=== PATIENT | male | born 1955 | race Caucasian/White ===

== ENCOUNTER 2020-08-26 10:01 | Outpatient (CLI) | payer MEDICARE ==
[2020-08-26 10:53] LABS: CLARITY,URINE CLEAR (Clear); COLOR,URINE YELLOW (Yellow); GLUCOSE, URINE NEGATIVE (Neg); KETONES,URINE TRACE mg/dl (Neg); LEUKOCYTE ESTERASE ,URINE NEGATIVE (Neg); OCCULT BLOOD,URINE NEGATIVE (Neg); PH,URINE 5.5 (4.8-8.0); PROTEIN,URINE NEGATIVE (Neg); UROBILINOGEN,URINE 0.2 E.U/dL (0.2-1.0)
[2020-08-26 10:55] LABS: UA COLLECTION TYPE CLN CATCH MIDSTREAM
[2020-08-26 10:57] LABS: BASOPHILS % (AUTO) 1.4 % (0-1); EOSINOPHILS # (AUTO) 0.1 X10'3 (0-0.9); EOSINOPHILS % (AUTO) 3.9 % (0-6); HEMATOCRIT 46.6 % (42.0-52.0); HEMOGLOBIN 15.8 g/dl (14.0-17.9); LYMPHOCYTES % (AUTO) 27.5 % (21-51); MEAN CORPUSCULAR HEMOGLOBIN 32.4 PG (27.0-31.0); MEAN CORPUSCULAR HGB CONC 33.8 g/dL (33.0-36.5); MEAN CORPUSCULAR VOLUME 95.6 FL (78-98); MEAN PLATELET VOLUME 10.4 FL (7.4-10.4); MONOCYTES # (AUTO) 0.3 X10'3 (0-0.9); MONOCYTES % (AUTO) 9.4 % (2-12); NEUTROPHILS # (AUTO) 2.1 X10'3 (1.8-7.7); NEUTROPHILS % (AUTO) 57.8 % (42-75); PLATELET COUNT 138 X10'3 (140-440); RED BLOOD COUNT 4.87 X10'6 (4.70-6.10); RED CELL DISTRIBUTION WIDTH 13.6 % (11.5-14.5); WHITE BLOOD COUNT 3.6 X10'3 (4.5-11.0)
[2020-08-26 10:59] LABS: SQUAMOUS EPITHELIAL CELL,UR FEW /LPF (FEW)
[2020-08-26 11:02] LABS: BACTERIA,URINE 1+ /HPF (Neg); NITRITES, URINE NEGATIVE (Neg); RBC,URINE 0-2 /HPF (0-2); WBC,URINE 0-4 /HPF (0-4)
[2020-08-26 11:03] LABS: HYALINE CASTS 0-3 /LPF (NEGATIVE)
[2020-08-26 11:15] LABS: ALANINE AMINOTRANSFERASE 22 U/L (12-78); ALBUMIN 3.8 G/DL (3.4-5.0); ALBUMIN/GLOBULIN RATIO 1.1 (1.1-1.5); ALKALINE PHOSPHATASE 82 IU/L (46-116); ANION GAP 8 (8-16); ASPARTATE AMINO TRANSFERASE 18 U/L (10-37); BILIRUBIN,TOTAL 0.7 MG/DL (0.1-1.0); BLOOD UREA NITROGEN 18 MG/DL (7-18); BUN/CREATININE RATIO 19.6 (5.4-32.0); CALCIUM 8.9 MG/DL (8.5-10.1); CHLORIDE 106 MMOL/L (99-107); CHOL/HDL RATIO 3.3 (0.00-4.99); CHOLESTEROL 186 MG/DL (0-200); CREATININE 0.92 MG/DL (0.60-1.10); GLUCOSE 85 MG/DL (70-104); HDL CHOLESTEROL 57 MG/DL (35-60); LDL CHOLESTEROL 113 MG/DL (50-100); SODIUM 146 MMOL/L (135-145); TOTAL CARBON DIOXIDE 32.4 MMOL/L (24-32); TOTAL PROTEIN 7.3 G/DL (6.4-8.2); TRIGLYCERIDES 51 MG/DL (20-135); eGFR 82 ML/MIN
== END 2020-08-26 23:59 | disposition home or self-care (01) ==
LOC: RAD 10:01
PROVIDERS: ATTEND Family Medicine
DX: J44.9 Chronic obstructive pulmonary disease, unspecified (principal); R06.02 Shortness of breath; I49.9 Cardiac arrhythmia, unspecified; R39.9 Unspecified symptoms and signs involving the genitourinary system; E78.5 Hyperlipidemia, unspecified
CPT/HCPCS: 36415; 71046; 80053; 80061; 81001; 84402; 84403; 84439; 84443; 85025

== ENCOUNTER 2020-09-30 09:55 | Outpatient (CLI) | payer MEDICARE | END 2020-09-30 23:59 | disposition home or self-care (01) | LOC: RT 09:55 | PROVIDERS: ATTEND Family Medicine | DX: R06.02 Shortness of breath (principal) | CPT/HCPCS: 94010; 94727; 94729 ==

== ENCOUNTER 2020-10-21 14:31 | Emergency (ER) | payer MEDICARE ==
[~2020-10-21] VITALS: Ht 185.4 cm; Wt 70.5 kg
[2020-10-21 16:14] LABS: BASOPHILS # (AUTO) 0.1 X10'3 (0-0.2); BASOPHILS % (AUTO) 1.2 % (0-1); EOSINOPHILS # (AUTO) 0.1 X10'3 (0-0.9); EOSINOPHILS % (AUTO) 1.3 % (0-6); HEMATOCRIT 47.1 % (42.0-52.0); HEMOGLOBIN 15.8 g/dl (14.0-17.9); MEAN CORPUSCULAR HEMOGLOBIN 31.5 PG (27.0-31.0); MEAN CORPUSCULAR HGB CONC 33.6 g/dL (33.0-36.5); MEAN CORPUSCULAR VOLUME 93.8 FL (78-98); MEAN PLATELET VOLUME 10.4 FL (7.4-10.4); MONOCYTES # (AUTO) 0.6 X10'3 (0-0.9); MONOCYTES % (AUTO) 12.1 % (2-12); NEUTROPHILS # (AUTO) 3.2 X10'3 (1.8-7.7); NEUTROPHILS % (AUTO) 65.4 % (42-75); PLATELET COUNT 140 X10'3 (140-440); RED BLOOD COUNT 5.02 X10'6 (4.70-6.10); RED CELL DISTRIBUTION WIDTH 13.4 % (11.5-14.5); WHITE BLOOD COUNT 4.8 X10'3 (4.5-11.0)
[2020-10-21 16:25] LABS: ALANINE AMINOTRANSFERASE 19 U/L (12-78); ALBUMIN 3.8 G/DL (3.4-5.0); ALBUMIN/GLOBULIN RATIO 1.1 (1.1-1.5); ALKALINE PHOSPHATASE 80 IU/L (46-116); ANION GAP 4 (8-16); ASPARTATE AMINO TRANSFERASE 14 U/L (10-37); BILIRUBIN,TOTAL 0.5 MG/DL (0.1-1.0); BLOOD UREA NITROGEN 21 MG/DL (7-18); BUN/CREATININE RATIO 19.4 (5.4-32.0); CALCIUM 9.1 MG/DL (8.5-10.1); CHLORIDE 105 MMOL/L (99-107); CREATININE 1.08 MG/DL (0.60-1.10); GLUCOSE 90 MG/DL (70-104); POTASSIUM 4.8 MMOL/L (3.5-5.1); SODIUM 141 MMOL/L (135-145); TOTAL CARBON DIOXIDE 32.1 MMOL/L (24-32); TOTAL PROTEIN 7.2 G/DL (6.4-8.2); eGFR 68 ML/MIN
[2020-10-21 21:11] VITALS: BP 131/80
== END 2020-10-21 21:09 | disposition home or self-care (01) ==
LOC: ER 14:32
DX: E86.0 Dehydration (principal); I48.0 Paroxysmal atrial fibrillation; R06.02 Shortness of breath; J44.9 Chronic obstructive pulmonary disease, unspecified; Z87.01 Personal history of pneumonia (recurrent)
CPT/HCPCS: 36415; 71045; 80053; 83880; 84484; 85025; 93005; 99285

== ENCOUNTER 2024-12-26 11:26 | Emergency (ER) | payer MEDICARE, OTHER ==
[~2024-12-26] VITALS: Ht 185.4 cm; Wt 75.0 kg
[2024-12-26 11:36] VITALS: TEMP 97.3
[2024-12-26] MEDS ORDERED: diltiazem-NS 100mg/100ml 100 ML IV SCH (11:45)
[2024-12-26] MEDS ORDERED: diltiazem 5mg/ml 5ml inj. IV ONE (11:45)
--- NOTE | 2024-12-26 11:45 | ELECTROCARDIOGRAPH REPORT ---
[facility] Test Date: 2024-12-26 Test Time: 11:30:34 Pat Name: PAMELA SANABRIA Department: ORTHO/NEURO Room: Gender: M Rn Field: : 1955 Requested By: MOISES PERALTA Order Number: [id number] Reading MD: Measurements Intervals [place] Rate: 135 P: 0 SD: 0 QRS: 87 QRSD: 74 T: 69 QT: 313 QTc: 470 Interpretive Statements Atrial fibrillation Anteroseptal infarct, age indeterminate Please click the below link to view image of tracing.
[2024-12-26] MEDS ORDERED: magnesium sulf-water 2g/50mL 50 ML IV ONE (11:50)
--- NOTE | 2024-12-26 11:51 | Physician Documentation ---
History of Present Illness ~ Chief Complaint: Palpitations Stated Complaint: AFIB Time Seen by MD: 11:45 Primary Medical Doctor: NERIS HPI This is a 69-year-old gentleman with a known history of paroxysmal AFib, on carvedilol, who presents for evaluation of palpitations and rapid heart rate. Started couple of days ago when his hand got caught in the drain of the pool. Has not been able to elicit any palliating or aggravating factors. Did not attempt to treat it. Compliant with his medications. He states that the palpitation and sensation of fast heart rate is preventing him from sleeping. Denies any other symptoms denies chest pain, shortness a breath, nausea, vomiting, diarrhea, abdominal pain. No concern for tobacco, alcohol or illicit substances use. Denies prior history of congestive heart failure. Medication Reconciliation Allergies: Coded Allergies: No Known Allergies (Unverified , 10/21/20) Scheduled Carvedilol (Coreg), 1.5 TAB PO BID, (Reported) Pantoprazole Sodium (Pantoprazole Sodium), 1 TAB PO DAILY, (Reported) Past Medical History Past Medical History: Atrial Fibrillation, COPD, Pneumonia Past Surgical History: no surgical history Alcohol Use: None Drug Use: none Lives with: Spouse Lives In: Home Occupation: employed Review of Systems ROS 10 point review of systems was performed and unless noted above in HPI is negative for acute process/complaint. Physical Exam Vital Signs: Temperature: 97.3, Source: Temporal, Heart Rate: 64, Respiratory Rate: 17, Pulse Oximetry: 97, Weight: 75.000 Physical Exam GENERAL: Awake, alert, oriented, GCS 15, no apparent distress, non-toxic appearing, answers questions, follows commands appropriately. Examined in bed 5. HEENT: Atraumatic, normocephalic, pupils equal, extraocular muscles intact, sclerae anicteric, mucus membranes moist, oropharynx is clear, no stridor. NECK: supple, full active range of motion, trachea midline, no thyromegaly, no lymphadenopathy, no JVD. CARDIOVASCULAR: Tachycardic and irregularly irregular rate/rhythm, no murmurs/gallops/rubs, Pulses are 2+ in all extremities and symmetric. Capillary refill less than 2 seconds. PULMONARY: Nonlabored, good air movement ,no respiratory distress, speaking in full sentences, clear to auscultation bilaterally, no wheezing, no ronchi, no rales, no accessory muscle use. GASTROINTESTINAL: Soft, non-tender, non-distended, normal active bowel sounds, no organomegaly, no pulsatile masses, no CVA tenderness. NEUROLOGIC: Lucid with normal mental status. Normal facial symmetry. Moves all extremities symmetrically and with purpose. No truncal ataxia. Speech is fluid without evidence of dysarthria or aphasia, no focal deficits appreciated. MUSCULOSKELETAL: There is full range of motion of all extremities. There is no joint pain or joint swelling or joint erythema. There is no muscle pain or tenderness or swelling. EXTREMITIES: warm, well-perfused, no cyanosis, no clubbing, no edema, no acute deformities. Skin: warm, dry, no rashes or lesions, no jaundice, no petechiae orpurpura. No ecchymosis. PSYCHIATRIC: Normal affect, normal insight, normal concentration. Focused exam: Progress Results/Orders Results/Orders Orders - ROSS PERALTA DO Chest,Single View (12/26/24 12:04) Monitor (12/26/24 11:43) Saline Lock (12/26/24 11:43) Oxygen (12/26/24 11:43) Hs Troponin I W Calculations (12/26/24 13:43) Hs Troponin I W Calculations (12/26/24 14:43) Diltiazem-Ns 100mg/100ml (Cardizem-Ns 10 (12/26/24 11:45) Completed Orders - ROSS PERALTA DO Chest,Single View (12/26/24 12:04) Cbc/Diff (12/26/24 11:43) BMP (12/26/24 11:43) PBNP (12/26/24 11:43) Electrocardiogram (12/26/24 11:43) Hs Troponin I W Calculations (12/26/24 11:43) Diltiazem Iv (Cardizem Iv 5mg/Ml Inj.) (12/26/24 11:45) Magnesium Sulf-Water 2g/50ml (Magnesium (12/26/24 11:50) Electrocardiogram (12/26/24 11:59) Vital Signs 12/26/24 12/26/24 12/26/24 12/26/24 11:36 12:00 12:05 12:43 Temp 97.3 Pulse 64 81 86 Resp 17 16 17 17 B/P (MAP) 113/86 (95) 102/75 (84) Pulse Ox 97 97 97 Laboratory Tests Test 12/26/24 11:50 White Blood Count 7.7 Red Blood Count 5.48 Hemoglobin 17.0 Hematocrit 50.7 Mean Corpuscular Volume 92.6 Mean Corpuscular Hemoglobin 31.0 Mean Corpuscular Hemoglobin Concent 33.5 Red Cell Distribution Width 13.9 Platelet Count 228 Mean Platelet Volume 8.9 Neutrophils (%) (Auto) 75.3 H Lymphocytes (%) (Auto) 14.2 L Monocytes (%) (Auto) 8.0 Eosinophils (%) (Auto) 1.3 Basophils (%) (Auto) 1.2 H Neutrophils # (Auto) 5.8 Lymphocytes # (Auto) 1.1 Monocytes # (Auto) 0.6 Eosinophils # (Auto) 0.1 Basophils # (Auto) 0.1 CBC Comment Sodium Level 138 Potassium Level 4.0 Chloride Level 102 Carbon Dioxide Level 28.8 Anion Gap 7 L Blood Urea Nitrogen 17 Creatinine 1.48 H Estimated GFR/1.73 m2 47 BUN/Creatinine Ratio 11.5 Glucose Level 147 H Calcium Level 9.4 Troponin I High Sensitivity 11 Pro-B-Type Natriuretic Peptide 4918 H Albumin 3.5 Chemistry Comments EKG/XRAY/CT/US/VASC/MRI EKG : Additional Comment Initial EKG was obtained and interpreted by myself shows atrial fibrillation, rate of 135, narrow QRS, no QT prolongation, normal axis, no STEMI. The patient had spontaneously converted and 2nd EKG was obtained showing sinus rhythm of 82, normal MD interval, narrow QRS, no QT prolongation, normal axis, no STEMI. Medical Decision Making Findings Facility Status: ED Holds, E process The plan was discussed with the patient, who demonstrates clear understanding of the plan and is in agreement with the plan unless otherwise noted in the chart. All questions have been answered, all concerns were addressed unless otherwise documented. I was available throughout their ED stay for frequent reassessment and questions. Differential Diagnoses (considered and possible or likely): [Atrial fibrillation with a rapid ventricular response, sinus tachycardia, atrial flutter, less likely malignant arrhythmia ventricular origin, idiopathic, less likely PE, less likely lung disease, less likely CHF or ACS] ??Differential Diagnoses (considered and unlikely, not requiring evaluation currently): [See above] [facility] Data Please see HPI for the following: Independent Historians and external Records Review. Historian: [Patient] Independent Historians: ?[Record review] Medication Management: [Reviewed medication list] Social History and determinants: [Reviewed] Please see the body of the note for the following: Any independent interpretations of ECG, imaging studies. All vitals signs/haemodynamics, ordered tests were independently reviewed and interpreted by myself. Nursing triage complaint and vitals reviewed, additional nursing notes were reviewed as available and I agree unless otherwise noted or documented in contradiction in the chart Vital Signs: Independently reviewed Labs: Independently interpreted Imaging: Independently interpreted Old Medical Records: Independently reviewed, see HPI for relevant summary and information Pulse Oximetry: [98%] interpreted as [normal on room air] by me [Tab Builder: Tachycardic and irregularly irregular without ectopy. Atrial fibrillation with a rapid ventricular response. reviewed and interpreted by me] Additionally notably showing: [Hemodynamics reviewed. Not febrile, not tachycardic after spontaneous conversion, no evidence of respiratory distress or hypoxia. CBC is normal. Metabolic panel is unremarkable except for slightly elevated creatinine. His BNP however is markedly elevated. Chest x-ray was obtained showing no acute disease.] Tests considered but not ordered include: [Advanced imaging has been considerably as well as echo, however the patient does not desire to be admitted.] Social Determinants of Health Impact: Patient was evaluated in [facility], [facility] [place] healthcare due to below par ratio of patient to medical providers. [] Comorbid Conditions Impacting Present Evaluation and Care/Treatment: [Hypotension, paroxysmal AFib] Management Discussions with other Healthcare Providers: [None] Treatment and Disposition Medication Management (Given or considered): []. See EMR for details Consideration for Hospitalization/Escalation/Deescalation of Care: Admission for observation has been considered, and in my professional opinion is necessary for further workup of his new onset congestive heart failure. ?ED Course:?[I have offered the gentleman admission for observation and workup was of his new onset AFib. Initially he agreed. Later I was informed that the gentleman does not want to be admitted, he is adamant about going home. Discussed risks and benefits. He will be leaving against medical advice. 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 Portions of this note were completed using Clar[employer] dictation software and as a result there may exist minor errors in spelling. I have reviewed elements of past family and social history and agree as included in note. Departure Disposition: 07 LEFT AGAINST MEDICAL ADVICE Impression: Primary Impression: New onset of congestive heart failure Additional Impression: Atrial fibrillation with rapid ventricular response Condition: Improved Referrals: NO PRIMARY CARE PROVIDER (PCP) Signature Scribe Signature: No scribe Attestation: This note accurately reflects clinical decisions, work performed by myself, Ross Peralta, ROSS SIMMONS DO Dec 26, 2024 11:51
[2024-12-26 12:03] LABS: MEAN PLATELET VOLUME 8.9 FL (7.4-10.4); RED CELL DISTRIBUTION WIDTH 13.9 % (11.5-14.5)
--- NOTE | 2024-12-26 12:03 | ELECTROCARDIOGRAPH REPORT ---
[facility] Test Date: 2024-12-26 Test Time: 12:02:33 Pat Name: PAMELA SANABRIA Department: EMERGENCY ROOM Room: Gender: M Hydrographer: : 1955 Requested By: MOISES PERALTA Order Number: [id number] Reading MD: Measurements Intervals [place] Rate: 82 P: 75 MN: 179 QRS: 81 QRSD: 82 T: 73 QT: 356 QTc: 416 Interpretive Statements Sinus rhythm Consider left atrial enlargement Anteroseptal infarct, age indeterminate Please click the below link to view image of tracing.
[2024-12-26] MEDS ORDERED: PANT40TA54 PO (12:07)
[2024-12-26] MEDS ORDERED: CARV3.12 PO (12:08)
--- NOTE | 2024-12-26 12:26 | RADIOLOGY REPORT ---
CHEST RADIOGRAPH Indication: CP Technique: Single frontal view of the chest was obtained COMPARISON: CHEST,SINGLE VIEW on DOS: 10/21/20, CHEST,TWO VIEWS on DOS: 08/26/20 FINDINGS: Lines and Tubes: None Lungs: Clear Pleura: No effusion. No pneumothorax. Cardiomediastinal contours: Unremarkable Bones: Unremarkable IMPRESSION: No acute disease.
[2024-12-26 12:40] LABS: CREATININE 1.48 MG/DL (0.60-1.10); PRO BRAIN NATRIURETIC PEPTIDE 4918 PG/ML (0-125); TOTAL CARBON DIOXIDE 28.8 MMOL/L (24-32); eCRCL 49 ML/MIN; eGFR 47 ML/MIN
[2024-12-26 13:03] VITALS: BP 123/76; PULSE 80; RESP 17; O2SAT 96
== END 2024-12-26 13:06 | disposition left against medical advice (07) ==
LOC: ER 11:27
DX: I50.9 Heart failure, unspecified (principal); I48.20 Chronic atrial fibrillation, unspecified; J44.9 Chronic obstructive pulmonary disease, unspecified
CPT/HCPCS: 36415; 71045; 80048; 83880; 84484; 85025; 93005; 99285; J7030

== ENCOUNTER 2024-12-30 09:41 | Emergency (ER) | payer MEDICARE, OTHER ==
[~2024-12-30] VITALS: Ht 185.4 cm; Wt 72.7 kg
[~2024-12-30 09:41] MED LIST: CARV3.12 PO; PANT40TA54 PO
[2024-12-30 09:55] VITALS: TEMP 97.9
--- NOTE | 2024-12-30 10:23 | RADIOLOGY REPORT ---
CHEST RADIOGRAPH Indication: CP Technique: Single frontal view of the chest was obtained COMPARISON: DI CHEST,SINGLE VIEW on DOS: 12/26/24, CHEST,SINGLE VIEW on DOS: 10/21/20, CHEST,TWO VIEWS o n DOS: 08/26/20 FINDINGS: Lines and Tubes: None Lungs: Clear Pleura: No effusion. No pneumothorax. Cardiomediastinal contours: Unremarkable Bones: Unremarkable IMPRESSION: No acute disease.
[2024-12-30 10:40] LABS: MEAN PLATELET VOLUME 8.9 FL (7.4-10.4); RED CELL DISTRIBUTION WIDTH 14.0 % (11.5-14.5)
[2024-12-30 10:52] LABS: CREATININE 1.08 MG/DL (0.60-1.10); PRO BRAIN NATRIURETIC PEPTIDE 237 PG/ML (0-125); TOTAL CARBON DIOXIDE 32.5 MMOL/L (24-32); eCRCL 65 ML/MIN; eGFR 68 ML/MIN
--- NOTE | 2024-12-30 17:36 | Physician Documentation ---
History of Present Illness ~ Chief Complaint: See Chief Complaint Stated Complaint: HEADACHES Time Seen by MD: 16:57 Primary Medical Doctor: NERIS OLIVO Patient is seen today with complaints of paroxysmal atrial fibrillation and states he was seen here at which time he was in AFib. Patient states he goes in and out of AFib once or twice a year so. Patient denies any current palpitations or changes in vital signs currently today. Patient states he did have a drop in blood pressure last . Patient states he does have an appointment with Dr. Nieto this Monday. Patient currently denies any chest pain or shortness of breath or abdominal pain or nausea, vomiting, diarrhea. Patient has no other concern or complaint at this time. Medication Reconciliation Allergies: Coded Allergies: No Known Allergies (Unverified , 12/30/24) Scheduled Carvedilol (Coreg), 1.5 TAB PO BID, (Reported) Pantoprazole Sodium (Pantoprazole Sodium), 1 TAB PO DAILY, (Reported) Past Medical History Past Medical History: Atrial Fibrillation, COPD, Pneumonia Past Surgical History: no surgical history Alcohol Use: None Drug Use: none Lives with: Spouse Lives In: Home Occupation: employed Review of Systems Constitutional: Denies: chills, fever, weakness Eyes: Denies: pain, blurred vision ENT: Denies: ear pain, nose pain, throat pain, mouth pain Respiratory: Denies: cough, shortness of breath Cardiovascular: Denies: chest pain, palpitations Gastrointestinal: Denies: abdominal pain, nausea, vomiting Genitourinary: Denies: burning, dysuria Male Genitalia: Denies: penile discharge, testicular pain Neurological: Denies: headache, dizziness Musculoskeletal: Denies: pain, swelling Integumentary: Denies: rash, lesions Allergic/Immunologic: Denies: hives, itching Hematologic/Lymphatic: Denies: no symptoms reported Psychiatric: Denies: depression, anxiety Physical Exam Vital Signs: Temperature: 97.9, Source: Temporal, Heart Rate: 65, Respiratory Rate: 18, BP: 142/88, Pulse Oximetry: 97, Weight: 72.730 Physical Exam General: Awake and Alert, no acute distress. HEENT: Conjunctiva pink, Sclera clear, Mucus Membranes moist. Neck: Supple without masses and tenderness. Resp: Unlabored. Lungs clear to auscultation bilaterally. Heart: Regular Rate and rhythm, normal S1 and S2 without murmur, rub or gallop. Abdomen: Soft and non tender no organomegaly Extremities: No cyanosis,clubbing or edema. Skin: Warm and Dry. Progress Results/Orders Results/Orders Vital Signs 12/30/24 12/30/24 09:55 16:55 Temp 97.9 Pulse 71 65 Resp 18 B/P (MAP) 144/96 142/88 (106) Pulse Ox 97 97 Laboratory Tests Test 12/30/24 10:14 12/30/24 11:59 White Blood Count 4.9 Red Blood Count 5.13 Hemoglobin 15.9 Hematocrit 47.8 Mean Corpuscular Volume 93.1 Mean Corpuscular Hemoglobin 30.9 Mean Corpuscular Hemoglobin Concent 33.2 Red Cell Distribution Width 14.0 Platelet Count 200 Mean Platelet Volume 8.9 Neutrophils (%) (Auto) 71.1 Lymphocytes (%) (Auto) 17.7 L Monocytes (%) (Auto) 8.1 Eosinophils (%) (Auto) 2.1 Basophils (%) (Auto) 1.0 Neutrophils # (Auto) 3.5 Lymphocytes # (Auto) 0.9 L Monocytes # (Auto) 0.4 Eosinophils # (Auto) 0.1 Basophils # (Auto) 0.0 CBC Comment Sodium Level 139 Potassium Level 4.2 Chloride Level 103 Carbon Dioxide Level 32.5 H Anion Gap 4 L Blood Urea Nitrogen 14 Creatinine 1.08 Estimated GFR/1.73 m2 68 BUN/Creatinine Ratio 13.0 Glucose Level 102 Calcium Level 9.4 Troponin I High Sensitivity 7 5 Pro-B-Type Natriuretic Peptide 237 H Albumin 3.8 Chemistry Comments Troponin I High Sens Percent Delta 28 Troponin I Hi Sens Absolute Change -2 EKG/XRAY/CT/US/VASC/MRI EKG : Additional Comment EKG interpreted by myself today shows regular rate at 74 beats per minute, normal sinus rhythm, no ST segment elevation or ischemic changes and no axis deviation. Chest X-Ray : Additional Comments Chest x-ray interpreted by myself today shows no large infiltrate, no large effusion, normal mediastinum. Heart Score: Heart Score Response (Comments) Value History Slightly Suspicious 0 EKG Normal 0 Age >65 2 Risk Factors 1 or 2 risk factors 1 Troponin Normal limit 0 Total 3 Medical Decision Making Findings Patient is seen today with complaints of paroxysmal atrial fibrillation and states he was seen here at which time he was in AFib. Patient states he goes in and out of AFib once or twice a year so. Patient denies any current palpitations or changes in vital signs currently today. Patient states he did have a drop in blood pressure last . Patient states he does have an appointment with Dr. Nieto this Monday. Patient currently denies any chest pain or shortness of breath or abdominal pain or nausea, vomiting, diarrhea. Patient has no other concern or complaint at this time. Patient declined admission today. Patient will keep his appointment with Dr. Nieto on Monday. Patient will continue to monitor symptoms closely. Patient will return to ED with any worsening, concerning or changing symptoms. Departure Disposition: HOME / SELF CARE / HOMELESS Impression: Primary Impression: Paroxysmal atrial fibrillation Condition: Stable Additional Instructions: Patient will keep his appointment with Dr. Nieto on Monday. Patient will continue to monitor symptoms closely. Patient will return to ED with any worsening, concerning or changing symptoms. Referrals: NO PRIMARY CARE PROVIDER (PCP) Additional Comment Additional Comment Patient refused admission today. Signature Scribe Signature: No scribe Attestation: No scribe MASOOD JENSEN PAC Dec 30, 2024 17:36
--- NOTE | 2024-12-30 17:59 | ELECTROCARDIOGRAPH REPORT ---
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
[2024-12-30 18:05] VITALS: BP 140/82; PULSE 68; RESP 16; O2SAT 98
== END 2024-12-30 18:09 | disposition home or self-care (01) ==
LOC: ER 09:41
DX: I48.0 Paroxysmal atrial fibrillation (principal); R06.02 Shortness of breath; J44.9 Chronic obstructive pulmonary disease, unspecified
CPT/HCPCS: 36415; 71045; 80048; 83880; 84484; 85025; 93005; 99285